=== PATIENT | female | born 1990 | race Caucasian/White ===

== ENCOUNTER 2016-12-15 23:06 | Emergency (ER) | payer MEDICAID ==
[2016-12-16] MEDS ORDERED: CEPHALEXIN 250 MG CAPSULE PO STA (00:20)
[2016-12-16] MEDS ORDERED: HYDROcod/ACETAM 5/325 MG TABLET PO STA (00:20)
[2016-12-16] MEDS ORDERED: CEPHALEXIN 250 MG CAPSULE PO ONE (00:32)
[2016-12-16] MEDS ORDERED: HYDROcod/ACETAM 5/325 MG TABLET ONE (00:33)
== END 2016-12-16 00:39 | disposition home or self-care (01) ==
DX: H66.91 Otitis media, unspecified, right ear (principal); F17.200 Nicotine dependence, unspecified, uncomplicated
CPT/HCPCS: 99283; A9270